=== PATIENT | female | born 1945 | race Two or more races ===

== ENCOUNTER 2019-01-27 05:04 | Emergency (ER) | payer OTHER ==
[~2019-01-27] VITALS: Ht 160 cm; Wt 103.4 kg
[~2019-01-27 05:04] MED LIST: ASPI-404 PO; ATEN-60 PO; LISI40TA PO; LORA0.5T12 PO
[2019-01-27 06:34] LABS: Basophils # (auto) 0 uL; Basophils % (auto) 0.2 % (0.0-2.0); Eosinophils # (auto) 0 uL; Eosinophils % (auto) 0.4 % (0.0-7.0); Hematocrit 40.2 % (36.0-46.0); Hemoglobin 13.6 g/dL (12.2-16.2); Lymphocytes # (auto) 0.7 uL; Lymphocytes % (auto) 6.9 % (10.0-50.0); Mean Corpuscular Hgb Conc. 33.9 g/dL (32.0-36.0); Mean Corpuscular Volume 85.7 fL (80.0-100.0); Monocytes # (auto) 0.5 uL; Monocytes % (auto) 5.7 % (0.0-12.0); Neutrophils # (auto) 8.2 uL; Neutrophils % (auto) 86.8 % (37.0-80.0); Nucleated Red Blood Cells % 0.1 %; Platelet Count (auto) 245 10^3/uL (140-450); Red Blood Cells 4.69 10^6/uL (4.0-5.20); Red Cell Distribution Width 14.7 % (11.8-14.3); White Blood Cell 9.5 10^3/uL (4.4-10.8)
[2019-01-27 06:51] LABS: Albumin 3.9 g/dL (3.4-5.0); Anion Gap 13 (5-15); Blood Urea Nitrogen 21 mg/dL (7-18); Calcium 9.1 mg/dL (8.5-10.1); Carbon Dioxide 25 mmol/L (21-32); Chloride 101 mmol/L (98-107); Glucose 135 mg/dL (74-106); Lipase 89 U/L (73-393); Magnesium 1.9 mg/dL (1.6-2.6); Potassium 3.7 mmol/L (3.5-5.1); Sodium 139 mmol/L (136-145)
[2019-01-27 06:54] LABS: Alanine Aminotransferase 18 U/L (13-56); Aspartate Aminotransferase 11 U/L (15-37); BUN/Creatinine Ratio 26.3; GFR African American 90 mL/min; GFR Non-African American 74 mL/min
[2019-01-27 06:59] LABS: Alkaline Phosphatase 85 U/L (45-117); Bilirubin, Total 0.5 mg/dL (0.2-1.0); Total Protein 7.5 g/dL (6.4-8.2)
[2019-01-27] MEDS ORDERED: SODIUM CHLORIDE 0.9% 1,000 ML IV ONE (07:57)
[2019-01-27] MEDS ORDERED: KETOROLAC TROMETH 15 mg/ml 1ML VL IV ONE (08:00)
[2019-01-27] MEDS ORDERED: TAMSULOSIN HYDROCHLORIDE 0.4 MG CAP PO ONE (09:00)
[2019-01-27 09:15] VITALS: BP 152/82
[2019-01-27] MEDS ORDERED: DOCUSATE SOD 100 MG CAP PO ONE (09:15)
[2019-01-27 09:30] LABS: Urine Bacteria NONE SEEN /hpf (None Seen); Urine Blood Negative /uL (Negative); Urine Mucus FEW (None Seen); Urine Specific Gravity 1.021 (1.001-1.035); Urine WBC 1 /hpf (0 - 5)
== END 2019-01-27 11:01 | disposition home or self-care (01) ==
LOC: ER 05:04
DX: N20.0 Calculus of kidney (principal); I25.10 Atherosclerotic heart disease of native coronary artery without angina pectoris; I10 Essential (primary) hypertension; E78.00 Pure hypercholesterolemia, unspecified; Z90.49 Acquired absence of other specified parts of digestive tract; Z90.710 Acquired absence of both cervix and uterus; Z79.82 Long term (current) use of aspirin; Z79.899 Other long term (current) drug therapy; Z88.2 Allergy status to sulfonamides; Z88.8 Allergy status to other drugs, medicaments and biological substances
CPT/HCPCS: 36415; 71045; 74176; 80053; 81001; 83690; 83735; 84484; 85025; 93005; 96361; 96374; 99284; J1885; J7030

== ENCOUNTER 2024-03-09 12:43 | Inpatient (IN) | payer OTHER ==
[~2024-03-09] VITALS: Ht 157.5 cm; Wt 119.0 kg
[~2024-03-09 12:43] MED LIST changes: -ASPI-404 PO; +ASPI-543 PO; -LISI40TA PO; +LISI40TA16 PO; +LORA-1121 PO; -LORA0.5T12 PO
[2024-03-09] MEDS: NITROGLYCERIN 0.4 MG SL TAB SL ONE (13:28)
[2024-03-09] MEDS: ASPirin 325 MG TAB PO ONE (13:29)
[2024-03-09 14:12] LABS: Chloride 106 mmol/L (98-107); Potassium 4.1 mmol/L (3.5-5.1); Sodium 141 mmol/L (136-145)
[2024-03-09 14:13] LABS: Anion Gap 7 (5-15); Calcium 9.4 mg/dL (8.7-10.4); Carbon Dioxide 28 mmol/L (20-30)
[2024-03-09 14:14] LABS: Basophils # (auto) 0 10 ^3/uL (0-0.2); Basophils % (auto) 0.5 % (0.0-2.0); Eosinophils # (auto) 0.1 10 ^3/uL (0-0.8); Hemoglobin 13.5 g/dL (12.2-16.2); Lymphocytes # (auto) 1.1 10 ^3/uL (0.4-5.4); Lymphocytes % (auto) 16.8 % (10.0-50.0); Mean Corpuscular Hemoglobin 29.7 pg (28.0-32.0); Mean Corpuscular Hgb Conc. 34.6 g/dL (32.0-36.0); Mean Corpuscular Volume 85.9 fL (80.0-100.0); Monocytes # (auto) 0.5 10 ^3/uL (0-1.3); Monocytes % (auto) 7.1 % (0.0-12.0); Neutrophils % (auto) 74.6 % (37.0-80.0); Nucleated Red Blood Cells % 0.1 %; Platelet Count (auto) 225 10^3/uL (140-450); Red Blood Cells 4.54 10^6/uL (4.0-5.20); Red Cell Distribution Width 14.5 % (11.8-14.3); White Blood Cell 6.6 10^3/uL (4.4-10.8)
[2024-03-09 14:18] LABS: BUN/Creatinine Ratio 18.7 (10.0-20.0); Blood Urea Nitrogen 14 mg/dL (9-23); Glucose 109 mg/dL (74-106)
[2024-03-09] MEDS ORDERED: ONDANSETRON HCL 4 MG/2 ML VIAL IV PRN (22:30)
[2024-03-09] MEDS ORDERED: NITROGLYCERIN 0.4 MG SL TAB SL PRN (22:30)
[2024-03-09] MEDS ORDERED: MORPHINE SULFATE INJ 2 MG/ml SYRG IV PRN (22:30)
[2024-03-09 23:50] VITALS: BP 130/85; PULSE 68; PULSE 69; RESP 18; TEMP 99.1; O2SAT 95; O2SAT 99
[2024-03-09 23:57] VITALS: BP 130/85; PULSE 72; RESP 19; TEMP 99.1; O2SAT 96
[2024-03-10] MEDS: ACETAMINOPHEN 325 MG TAB PO PRN (00:47)
[2024-03-10 05:00] VITALS: BP 105/63; PULSE 71; RESP 19; TEMP 98.8; O2SAT 96
[2024-03-10 07:43] LABS: Chloride 108 mmol/L (98-107); Potassium 4.1 mmol/L (3.5-5.1); Sodium 139 mmol/L (136-145)
[2024-03-10 07:44] LABS: Anion Gap 7 (5-15); Carbon Dioxide 24 mmol/L (20-30)
[2024-03-10 07:49] LABS: BUN/Creatinine Ratio 10.4 (10.0-20.0); Blood Urea Nitrogen 7 mg/dL (9-23); Glucose 89 mg/dL (74-106)
[2024-03-10 08:00] VITALS: PULSE 72; RESP 15; O2SAT 98
[2024-03-10 08:58] VITALS: BP 142/70; PULSE 64; RESP 17; TEMP 98.4; O2SAT 97
[2024-03-10] MEDS: DABIGATRAN 75 MG CAP PO SCH (10:22)
[2024-03-10] MEDS: CLOPIDOGREL BISULFATE 75 MG TAB PO SCH (10:23)
[2024-03-10] MEDS: METOPROLOL SUCCINATE XL 50 MG TAB PO SCH (10:24)
[2024-03-10] MEDS: ASPirin 81 mg TAB PO SCH (10:24)
[2024-03-10] MEDS ORDERED: ATOR80TA PO (12:47)
[2024-03-10] MEDS ORDERED: LORA-1123 PO (12:48)
[2024-03-10] MEDS ORDERED: ACE3T PO (12:49)
[2024-03-10] MEDS ORDERED: AMLO1TAB22 PO (12:49)
[2024-03-10] MEDS ORDERED: PANT40TA2 PO (12:51)
[2024-03-10] MEDS ORDERED: PANT1INJ3 PO (12:51)
[2024-03-10] MEDS ORDERED: CLOP75TA70 PO (12:52)
[2024-03-10] MEDS ORDERED: METO-289 PO (12:53)
[2024-03-10] MEDS ORDERED: DABI150C5 PO (12:54)
[2024-03-10] MEDS ORDERED: NYSTOIN4 TOP (12:56)
[2024-03-10] MEDS ORDERED: FLUC150T47 PO (12:56)
[2024-03-10] MEDS ORDERED: POLYSOL7 EACHEYE (12:59)
[2024-03-10] MEDS ORDERED: POM EXT (12:59)
[2024-03-10 17:00] VITALS: BP 140/69; PULSE 64; RESP 16; TEMP 98.1; O2SAT 98
[2024-03-10] MEDS ORDERED: FUROSEMIDE 20 MG/2 ML VIAL IV SCH (18:00)
[2024-03-10 20:00] VITALS: PULSE 89
[2024-03-10] MEDS: FUROSEMIDE 20 MG/2 ML VIAL IV SCH (20:37)
[2024-03-10 21:00] VITALS: BP 135/66; PULSE 66; RESP 18; TEMP 98; O2SAT 95
[2024-03-10] MEDS: ATORVASTATIN 20 MG TAB PO SCH (21:03)
[2024-03-11] VITALS (8 sets, daily range): BP systolic 103–163; BP diastolic 66–77; PULSE 60–80; RESP 17–20; TEMP 97.6–98.1; O2SAT 92–96
[2024-03-11] MEDS: PANTOPRAZOLE 40 MG TAB PO SCH (06:04)
[2024-03-11 06:47] LABS: Basophils # (auto) 0 10 ^3/uL (0-0.2); Basophils % (auto) 0.5 % (0.0-2.0); Eosinophils # (auto) 0.2 10 ^3/uL (0-0.8); Eosinophils % (auto) 2.3 % (0.0-7.0); Hematocrit 41.6 % (36.0-46.0); Hemoglobin 14.4 g/dL (12.2-16.2); Lymphocytes # (auto) 1.2 10 ^3/uL (0.4-5.4); Lymphocytes % (auto) 16.4 % (10.0-50.0); Mean Corpuscular Hemoglobin 29.6 pg (28.0-32.0); Mean Corpuscular Hgb Conc. 34.7 g/dL (32.0-36.0); Mean Corpuscular Volume 85.4 fL (80.0-100.0); Monocytes # (auto) 0.6 10 ^3/uL (0-1.3); Monocytes % (auto) 9.1 % (0.0-12.0); Neutrophils # (auto) 5.1 10 ^3/uL (1.6-8.6); Neutrophils % (auto) 71.7 % (37.0-80.0); Nucleated Red Blood Cells % 0.1 %; Platelet Count (auto) 234 10^3/uL (140-450); Red Blood Cells 4.87 10^6/uL (4.0-5.20); Red Cell Distribution Width 14.4 % (11.8-14.3); White Blood Cell 7.1 10^3/uL (4.4-10.8)
[2024-03-11 07:04] LABS: Alanine Aminotransferase 27 U/L (7-40); Albumin 4.6 g/dL (3.2-4.8); Alkaline Phosphatase 84 U/L (46-116); Anion Gap 8 (5-15); Aspartate Aminotransferase 15 U/L (13-40); BUN/Creatinine Ratio 13.6 (10.0-20.0); Blood Urea Nitrogen 11 mg/dL (9-23); Calcium 9.9 mg/dL (8.7-10.4); Carbon Dioxide 29 mmol/L (20-30); Chloride 104 mmol/L (98-107); Glucose 123 mg/dL (74-106); LDL Cholesterol 44 mg/dL (< 100); Potassium 3.4 mmol/L (3.5-5.1); Sodium 141 mmol/L (136-145); Triglycerides 99 mg/dL (< 150)
[2024-03-11 07:05] LABS: Bilirubin, Total 1.2 mg/dL (0.2-1.0); Cholesterol 104 mg/dL (< 200); HDL Cholesterol 34 mg/dL (40-59); Total Protein 7.2 g/dL (5.7-8.2)
[2024-03-11] MEDS ORDERED: ASPirin 81 mg TAB PO SCH (10:00)
[2024-03-11] MEDS: POTASSIUM CHL 20 Meq TABLET PO ONE ×2 (10:14→17:28)
[2024-03-12] VITALS (8 sets, daily range): BP systolic 114–153; BP diastolic 48–79; PULSE 67–84; RESP 18–21; TEMP 97.6–98.2; O2SAT 96–98
[2024-03-12 05:04] LABS: Urine Bacteria None Seen /hpf (None Seen)
[2024-03-12 05:42] LABS: Urine Blood Negative /uL (Negative); Urine Clarity Turbid (Clear); Urine Color Yellow (Yellow); Urine Mucus FEW (None Seen); Urine Protein, UAD Negative (Negative); Urine Specific Gravity 1.025 (1.001-1.035); Urine Urobilinogen Normal (Negative); Urine WBC 3 /hpf (0 - 5)
[2024-03-12 05:43] LABS: Chloride 103 mmol/L (98-107); Potassium 3.5 mmol/L (3.5-5.1); Sodium 139 mmol/L (136-145)
[2024-03-12 05:44] LABS: Anion Gap 6 (5-15); Calcium 9.4 mg/dL (8.7-10.4); Carbon Dioxide 30 mmol/L (20-30)
[2024-03-12 05:49] LABS: BUN/Creatinine Ratio 17.6 (10.0-20.0); Blood Urea Nitrogen 15 mg/dL (9-23); Glucose 120 mg/dL (74-106)
[2024-03-12] MEDS: POTASSIUM CHL 20 Meq TABLET PO SCH (09:58)
[2024-03-12] MEDS: FUROSEMIDE 40 MG TAB PO SCH (10:00)
[2024-03-12] MEDS: MORPHINE SULFATE INJ 2 MG/ml SYRG IV ONE (11:45)
== END 2024-03-12 23:58 | disposition short-term general hospital (02) | DRG 291 ==
LOC: ER 12:43 → TELE 22:31 → TELE-WESTW 23:59 → TELE-EAST 03-10 11:23
PROVIDERS: ADMIT Nurse Practitioner; ATTEND Internal Medicine
DX: I11.0 Hypertensive heart disease with heart failure (principal); I50.33 Acute on chronic diastolic (congestive) heart failure; D68.69 Other thrombophilia; Z68.42 Body mass index [BMI] 45.0-49.9, adult; I48.91 Unspecified atrial fibrillation; E11.9 Type 2 diabetes mellitus without complications; E66.01 Morbid (severe) obesity due to excess calories; E78.5 Hyperlipidemia, unspecified; I25.10 Atherosclerotic heart disease of native coronary artery without angina pectoris; I49.8 Other specified cardiac arrhythmias; I49.5 Sick sinus syndrome; Z95.5 Presence of coronary angioplasty implant and graft; Z88.2 Allergy status to sulfonamides; Z88.8 Allergy status to other drugs, medicaments and biological substances; Z90.710 Acquired absence of both cervix and uterus; Z90.49 Acquired absence of other specified parts of digestive tract; Z82.49 Family history of ischemic heart disease and other diseases of the circulatory system; Z83.3 Family history of diabetes mellitus; Z83.42 Family history of familial hypercholesterolemia
CPT/HCPCS: 36415; 71045; 80048; 80053; 80061; 81001; 83880; 84443; 84484; 85025; 93005; 93306; 97110; 97163; 99291; G0378